=== PATIENT | male | born 2000 | race Two or more races ===

== ENCOUNTER 2021-08-22 16:05 | Emergency (ER) | payer MEDICAID ==
[~2021-08-22] VITALS: Ht 175.3 cm; Wt 79.4 kg
[2021-08-22 16:15] VITALS: BP 117/73
[2021-08-22] MEDS ORDERED: ACETAMINOPHEN 325 MG TAB PO ONE (17:30)
== END 2021-08-22 22:27 | disposition left against medical advice (07) ==
LOC: ER 16:05
DX: S61.211A Laceration without foreign body of left index finger without damage to nail, initial encounter (principal); Z53.21 Procedure and treatment not carried out due to patient leaving prior to being seen by health care provider; W26.8XXA Contact with other sharp object(s), not elsewhere classified, initial encounter; Y93.89 Activity, other specified; Y92.89 Other specified places as the place of occurrence of the external cause; Y99.8 Other external cause status